=== PATIENT | female | born 1985 | race American Indian/Alaskan Native ===

== ENCOUNTER 2017-10-02 14:07 | Outpatient (CLI) | payer OTHER ==
[2017-10-03] MEDS ORDERED: ASPIR 8181 MG PO (07:28)
[2017-10-03] MEDS ORDERED: METFORMIN HCL1000 MG PO (09:45)
[2017-10-03] MEDS ORDERED: [UNRECOGNIZED DRUG - OTHER] PO (09:46)
== END 2017-10-02 16:02 | disposition still patient (30) ==
LOC: NST 14:07
DX: Z34.83 Encounter for supervision of other normal pregnancy, third trimester (principal)

== ENCOUNTER 2017-10-02 15:44 | Inpatient (IN) | payer OTHER ==
[~2017-10-02] VITALS: Ht 152.4 cm; Wt 108.4 kg
[2017-10-03] MEDS ORDERED: ASPIR 8181 MG PO (07:28)
[2017-10-03] MEDS ORDERED: METFORMIN HCL1000 MG PO (09:45)
[2017-10-03] MEDS ORDERED: [UNRECOGNIZED DRUG - OTHER] PO (09:46)
== END 2017-10-04 09:02 | DRG 780 ==
LOC: LDR 15:44 → OB/GYN 15:44
PROC: 4A1HXCZ Monitoring of Products of Conception, Cardiac Rate, External Approach (ICD-10-PCS; principal; 2017-10-02)
DX: O47.03 False labor before 37 completed weeks of gestation, third trimester (principal)

== ENCOUNTER 2017-10-09 04:14 | Inpatient (IN) | payer OTHER ==
[~2017-10-09] VITALS: Ht 152.4 cm; Wt 108.4 kg
[~2017-10-09 04:14] MED LIST: ASPIR 8181 MG PO; METFORMIN HCL1000 MG PO; [UNRECOGNIZED DRUG - OTHER] PO
== END 2017-10-11 11:43 | disposition home or self-care (01) | DRG 766 ==
LOC: LDR 04:14 → OB/GYN 04:14 → O/R 09:21 → OB/GYN 10:45
PROVIDERS: Obstetrics & Gynecology
PROC: 4A033R1 Measurement of Arterial Saturation, Peripheral, Percutaneous Approach (ICD-10-PCS; 2017-10-09)
PROC: 4A1HXCZ Monitoring of Products of Conception, Cardiac Rate, External Approach (ICD-10-PCS; 2017-10-09)
PROC: 10D00Z1 Extraction of Products of Conception, Low, Open Approach (ICD-10-PCS; principal; 2017-10-09 07:30)
DX: O24.420 Gestational diabetes mellitus in childbirth, diet controlled (principal); Z3A.35 35 weeks gestation of pregnancy; Z37.0 Single live birth

== ENCOUNTER 2024-02-13 11:57 | Outpatient (CLI) | payer OTHER | END 2024-02-13 13:02 | disposition home or self-care (01) | LOC: NST 11:57 | PROVIDERS: ATTEND Obstetrics & Gynecology | DX: Z34.83 Encounter for supervision of other normal pregnancy, third trimester (principal) ==

== ENCOUNTER 2024-03-23 19:49 | Outpatient (CLI) | payer OTHER ==
[2024-03-23 20:17] VITALS: BP 114/77
[2024-03-23 20:26] VITALS: BP 114/77
[2024-03-23 23:45] VITALS: BP 106/74
[2024-03-24 03:25] VITALS: BP 119/78
[2024-03-24 06:15] VITALS: BP 115/78; O2SAT 97
[2024-03-24 11:01] VITALS: BP 115/78
== END 2024-03-24 11:27 | disposition home or self-care (01) ==
LOC: OBS/DEL 19:49
PROVIDERS: ATTEND Obstetrics & Gynecology
DX: O36.8130 Decreased fetal movements, third trimester, not applicable or unspecified (principal); Z3A.37 37 weeks gestation of pregnancy

== ENCOUNTER → 2024-03-26 | Outpatient (CLI) | payer OTHER | END | disposition home or self-care (01) | LOC: NST 14:29 | PROVIDERS: ATTEND Obstetrics & Gynecology Maternal & Fetal Medicine | DX: Z34.83 Encounter for supervision of other normal pregnancy, third trimester (principal) ==

== ENCOUNTER 2024-04-04 08:50 | Inpatient (IN) | payer OTHER ==
[~2024-04-04] VITALS: Ht 152.4 cm; Wt 2.7 kg
[2024-04-04 10:29] LABS: HEMATOCRIT 41.8 % (36.0-45.00); HEMOGLOBIN 14.1 g/dL (12.0-15.00); MEAN CELL VOLUME 82.7 fL (80.00-100.00); MEAN CORPUSCULAR HEMOGLOBIN 27.8 pg (27.00-32.0); MEAN CORPUSCULAR HGB CONC 33.6 g/dl (32.0-36.0); PLATELET COUNT 262 K/uL (150-450); RED BLOOD COUNT 5.06 M/uL (4.00-6.00); RED CELL DISTRIBUTION WIDTH 14.9 % (11.5-14.5)
[2024-04-04 10:50] LABS: INR 0.94; PARTIAL THROMBOPLASTIN TIME 27.4 SECONDS (22.0-34.0); PROTHROMBIN TIME 10.3 SECONDS (9.0-11.5)
[2024-04-04 11:26] LABS: ALBUMIN 2.6 gm/dL (3.4-5.0); BILIRUBIN TOTAL 0.45 mg/dL (0.3-1.2); CREATININE SERUM 0.48 mg/dL (0.55-1.02); GFR 145.52; GLOBULINA 4.2 G/DL (2.4-3.5); POTASSIUM 4.45 mEq/L (3.5-5.1); TOTAL PROTEIN 6.8 gm/dL (6.4-8.2)
[2024-04-09 09:14] VITALS: BP 132/83
[2024-04-09] MEDS ORDERED: ERYTHROMYCIN BASE OPHT 1GM EACH TUBE OP ONE (13:30)
[2024-04-09] MEDS ORDERED: OXYTOCIN 10 UNITS/ML VIAL IV ONE (13:30)
[2024-04-09] MEDS ORDERED: CEFAZOLIN SODIUM 1,000 MG VIAL IV ONE (13:30)
[2024-04-09] MEDS ORDERED: MORPHINE SULFATE 4 MG/ML CARTRIDGE IV PRN (14:30)
[2024-04-09] MEDS ORDERED: OXYTOCIN 1,000 ML IV SCH (14:30)
[2024-04-09] MEDS ORDERED: MORPHINE SULFATE 4 MG/ML VIAL IV ONE ×3 (15:35→17:30)
[2024-04-09] MEDS ORDERED: GABAPENTIN 300 MG CAPSULE PO SCH (17:00)
[2024-04-09 18:35] VITALS: BP 129/83
[2024-04-10 01:06] VITALS: BP 139/76
[2024-04-10 08:00] VITALS: BP 179/80
[2024-04-10] MEDS ORDERED: LABETALOL HCL 200 MG TABLET PO STA (09:34)
[2024-04-10] MEDS ORDERED: OxyCODONE HCL/APAP UD (PERCOCET) PO SCH (09:34)
[2024-04-10 12:00] VITALS: BP 133/66
[2024-04-10 15:13] LABS: HEMATOCRIT 38.6 % (36.0-45.00); MEAN CELL VOLUME 82.8 fL (80.00-100.00); MEAN CORPUSCULAR HEMOGLOBIN 27.9 pg (27.00-32.0); MEAN CORPUSCULAR HGB CONC 33.8 g/dl (32.0-36.0); PLATELET COUNT 255 K/uL (150-450); RED BLOOD COUNT 4.66 M/uL (4.00-6.00); RED CELL DISTRIBUTION WIDTH 14.7 % (11.5-14.5)
[2024-04-11 00:31] VITALS: BP 116/77
[2024-04-11 09:47] VITALS: BP 100/64
[2024-04-11] MEDS ORDERED: OXYC1TAB9 PO (11:03)
== END 2024-04-11 13:57 | disposition home or self-care (01) | DRG 785 ==
LOC: OB/GYN 04-09 08:49 → O/R 04-09 09:33 → OB/GYN 04-09 09:33
PROVIDERS: Obstetrics & Gynecology Maternal & Fetal Medicine; ADMIT Obstetrics & Gynecology; ATTEND Obstetrics & Gynecology
PROC: 0UB70ZZ Excision of Bilateral Fallopian Tubes, Open Approach (ICD-10-PCS; 2024-04-09)
PROC: 0DNW0ZZ Release Peritoneum, Open Approach (ICD-10-PCS; 2024-04-09)
PROC: 4A1HXCZ Monitoring of Products of Conception, Cardiac Rate, External Approach (ICD-10-PCS; 2024-04-09)
PROC: 10D00Z1 Extraction of Products of Conception, Low, Open Approach (ICD-10-PCS; principal; 2024-04-09 11:00)
DX: O34.211 Maternal care for low transverse scar from previous cesarean delivery (principal); O99.892 Other specified diseases and conditions complicating childbirth; N73.6 Female pelvic peritoneal adhesions (postinfective); Z30.2 Encounter for sterilization; Z3A.38 38 weeks gestation of pregnancy; Z37.0 Single live birth; Z20.822 Contact with and (suspected) exposure to COVID-19